=== PATIENT | female | born 1955 | race Two or more races ===

== ENCOUNTER 2023-12-31 16:29 | Emergency (ER) | payer OTHER ==
[2023-12-31 16:52] VITALS: BP 118/69; PULSE 75; RESP 18; TEMP 98.2
[2023-12-31 17:49] VITALS: BMI 21.7
== END 2023-12-31 18:48 | disposition home or self-care (01) ==
LOC: FER 16:29
DX: S62.643A Nondisplaced fracture of proximal phalanx of left middle finger, initial encounter for closed fracture (principal); S62.645A Nondisplaced fracture of proximal phalanx of left ring finger, initial encounter for closed fracture; W23.1XXA Caught, crushed, jammed, or pinched between stationary objects, initial encounter
CPT/HCPCS: 73130-TC-LT-FY; 99283-25